=== PATIENT | female | born 1985 | race African-American/Black ===

== ENCOUNTER 2016-12-29 09:28 | Emergency (ER) | payer OTHER ==
[~2016-12-29] VITALS: Ht 160 cm; Wt 79.4 kg
[~2016-12-29 09:28] MED LIST: APAP500; HYDROCODON-ACE1 EAC7; IBUPROFEN 600600 M1; LANSINOH 60 GM60 GM; PRENATAL VITAM1 EAC6 PO; SIMETHICON CHEW80 M1
[2016-12-29 10:11] LABS: URINE BILIRUBIN NEGATIVE (Negative); URINE BLOOD 3+ (Negative); URINE GLUCOSE-RANDOM* NEGATIVE (Negative); URINE KETONES NEGATIVE (Negative); URINE LEUKOCYTES-REFLEX 1+ (Negative); URINE PROTEIN (DIPSTICK) 1+ (Negative)
[2016-12-29 10:12] LABS: URINE COLOR DARK YELLOW
[2016-12-29 10:18] LABS: CASTS None Seen /LPF (None Seen); CRYSTALS None Seen /LPF (None Seen); SQUAMOUS 4-10 Moderate /LPF (0-3); URINE RBC >20 Many /HPF (0-2); URINE WBC-REFLEX 6-15 Few /HPF (0-5)
[2016-12-29 10:45] LABS: ABSOLUTE NEUTROPHILS 5.6 thou/uL (1.4-8.2); BASOPHILS 0.3 % (0.0-2.0); EOSINOPHILS 2.8 % (0.0-3.0); HEMATOCRIT 38.1 % (37.0-47.0); HEMOGLOBIN 12.9 gm/dL (12.0-15.0); LYMPHOCYTES 25.9 % (24.0-44.0); MCH 28.9 pg (26.0-34.0); MCV 85.1 fL (80.0-100.0); MONOCYTES 7.8 % (1.0-8.0); PLATELET COUNT 273 thou/uL (150-400); POLYS 63.2 % (36.0-66.0); RBC 4.48 mil/uL (4.20-5.00); RDW 14.2 % (10.5-14.5); WBC 8.9 thou/uL (4.0-11.0)
[2016-12-29 10:47] LABS: MANUAL DIFF NO
[2016-12-29 11:54] LABS: CALCIUM 8.6 mg/dL (8.5-10.1); CREATININE 0.8 mg/dL (0.6-1.0); POTASSIUM 3.3 mmol/L (3.5-5.1)
[2016-12-29 11:59] LABS: ALBUMIN 3.4 g/dL (3.4-5.0); TOTAL BILIRUBIN 0.4 mg/dL (<0.1-1.0); TOTAL PROTEIN 7.4 g/dL (6.4-8.2)
[2016-12-29] MEDS ORDERED: MOBIC15 MG PO (12:23)
[2016-12-29] MEDS ORDERED: KEFLEX500 MG PO (12:32)
[2016-12-29 12:39] VITALS: BP 120/86
[2016-12-30 20:09] LABS: CHLAMYDIA TRACHOMATIS-PCR Negative (Negative); NEISSERIA GONORRHEA-PCR Negative (Negative)
== END 2016-12-29 12:39 | disposition home or self-care (01) ==
LOC: ER 09:28
PROVIDERS: Physician Assistant
DX: O03.9 Complete or unspecified spontaneous abortion without complication (principal); O23.40 Unspecified infection of urinary tract in pregnancy, unspecified trimester; O34.80 Maternal care for other abnormalities of pelvic organs, unspecified trimester; Z3A.00 Weeks of gestation of pregnancy not specified